=== PATIENT | female | born 1955 | race Caucasian/White ===

== ENCOUNTER → 2024-06-01 | Outpatient (CLI) | payer OTHER ==
[~2024-06-01] MED LIST: Aspirin EC81 MG; BROMELAINS500 MG PO; CALCIUM 600 +1 EAC9 PO; CETI10 PO; CHOL10002; CONESTTC; CRANBERRY 4001 EACH PO; DAILY MULTIVIT1 EAC2 PO; Dhea Tablet1 EACH PO; FAMO20 PO; MEGARED OMEGA-1 EAC1 PO; TURMERIC500 MG PO; ZINC PO
== END ==
LOC: LAB SHORT 18:48 → LAB 18:48
DX: R30.0 Dysuria (principal)
CPT/HCPCS: 87077; 87086; 87186